=== PATIENT | female | born 1935 | race Caucasian/White ===

== ENCOUNTER 2017-07-13 11:20 | Inpatient (IN) | payer MEDICARE ==
[~2017-07-13] VITALS: Ht 160 cm; Wt 87.5 kg
[2017-07-13 11:40] LABS: BASOPHILS % (AUTO) 0.6 % (0.0-5.0); LYMPHOCYTES % (AUTO) 19.1 % (21.0-51.0); MEAN CORPUSCULAR HEMOGLOBIN 30.7 pg (27.0-33.0); MEAN CORPUSCULAR HGB CONC 33.7 g/dL (32.0-36.0); MEAN CORPUSCULAR VOLUME 90.9 fL (79-99); MONOCYTES % (AUTO) 7.3 % (3.0-13.0); PLATELET COUNT (AUTO) 212 K/uL (130-400); RED BLOOD CELL COUNT(AUTO) 4.28 MIL/uL (4.00-5.50); RED CELL DISTRIBUTION WIDTH 13.6 % (11.0-15.5); WHITE BLOOD COUNT (AUTO) 10.7 K/uL (4.8-10.8)
[2017-07-13 11:48] LABS: CREATININE 0.9 mg/dL (0.5-1.5); POTASSIUM 3.7 mmol/L (3.5-5.1)
[2017-07-13 11:51] LABS: INR 1.04 (0.85-1.15); PARTIAL THROMBOPLASTIN TIME 25.2 SEC (26.3-35.5); PROTHROMBIN TIME 10.9 SEC (9.6-11.6)
[2017-07-13 11:53] LABS: ALBUMIN 3.4 g/dL (3.5-5.0); BILIRUBIN,DIRECT 0.1 mg/dL (0.0-0.3); BILIRUBIN,TOTAL 0.5 mg/dL (0.2-1.0); TOTAL PROTEIN, SERUM 6.9 g/dL (6.0-8.3)
[2017-07-13 12:05] LABS: B-TYPE NATRIURETIC PEPTIDE 317 pg/mL (0-100)
[2017-07-13 14:30] VITALS: BP 141/46
[2017-07-13] MEDS ORDERED: ALBU8.5H8 IH (15:04)
[2017-07-13] MEDS ORDERED: RALO60TA13 PO (15:04)
[2017-07-13] MEDS ORDERED: OMEP40CA37 PO (15:04)
[2017-07-13] MEDS ORDERED: CHOL200013 PO (15:04)
[2017-07-13] MEDS ORDERED: TERB30CR22 TP (15:04)
[2017-07-13] MEDS ORDERED: LISI-613 PO (15:04)
[2017-07-13] MEDS ORDERED: LEVO50TA11 PO (15:04)
[2017-07-13] MEDS ORDERED: AMLO5TAB2 PO (15:04)
[2017-07-13] MEDS ORDERED: CALC600T12 PO (15:04)
[2017-07-13] MEDS ORDERED: FLUT15.88 NS (15:04)
[2017-07-13] MEDS ORDERED: SIMV10TA6 PO (15:04)
[2017-07-13] MEDS ORDERED: [UNRECOGNIZED DRUG - CODE] TP (15:04)
[2017-07-13] MEDS ORDERED: ATROPINE SULFATE 0.1 MG/ML 10 ML SYG IVP PRN (15:15)
[2017-07-13 16:00] VITALS: BP 132/42
[2017-07-13 19:32] VITALS: BP 150/52
[2017-07-13 20:40] LABS: CREATINE KINASE MB 0.5 ng/mL (0.5-3.6); CREATINE KINASE, TOTAL 37 U/L (21-232); MYOGLOBIN 31 ng/mL (10-92); TROPONIN I < 0.04 ng/mL (0.00-0.06)
[2017-07-13] MEDS ORDERED: ACETAMINOPHEN 650 MG SUPPOSITORY RC PRN (22:15)
[2017-07-13 23:18] VITALS: BP 124/51
[2017-07-14] VITALS (11 sets, daily range): BP systolic 109–160; BP diastolic 53–78
[2017-07-14 03:59] LABS: HEMATOCRIT 34.9 % (36-48); MEAN CORPUSCULAR HEMOGLOBIN 30.9 pg (27.0-33.0); MEAN CORPUSCULAR HGB CONC 34.3 g/dL (32.0-36.0); MEAN CORPUSCULAR VOLUME 90.1 fL (79-99); PLATELET COUNT (AUTO) 158 K/uL (130-400); RED BLOOD CELL COUNT(AUTO) 3.87 MIL/uL (4.00-5.50); RED CELL DISTRIBUTION WIDTH 13.3 % (11.0-15.5); WHITE BLOOD COUNT (AUTO) 10.2 K/uL (4.8-10.8)
[2017-07-14 04:07] LABS: INR 1.06 (0.85-1.15); PARTIAL THROMBOPLASTIN TIME 25.7 SEC (26.3-35.5); PROTHROMBIN TIME 11.1 SEC (9.6-11.6)
[2017-07-14 04:24] LABS: ALANINE AMINOTRANSFERASE 17 U/L (12-78); ALBUMIN 2.7 g/dL (3.5-5.0); ASPARTATE AMINOTRANSFERASE 14 U/L (10-37); BILIRUBIN,TOTAL 0.5 mg/dL (0.2-1.0); CARBON DIOXIDE 26 mmol/L (21-32); CHLORIDE 110 mmol/L (101-111); CREATINE KINASE MB < 0.5 ng/mL (0.5-3.6); CREATINE KINASE, TOTAL 36 U/L (21-232); CREATININE 0.8 mg/dL (0.5-1.5); GLOMERULAR FILTR. RATE CALC 74 mL/min (>60); GLUCOSE,RANDOM 118 mg/dL (70-105); MYOGLOBIN 30 ng/mL (10-92); POTASSIUM 3.7 mmol/L (3.5-5.1); SODIUM SERUM 145 mmol/L (136-145); TOTAL PROTEIN, SERUM 5.6 g/dL (6.0-8.3); TROPONIN I < 0.04 ng/mL (0.00-0.06); UREA NITROGEN, BLOOD 27 mg/dL (7-18)
[2017-07-14] MEDS: LEVOTHYROXINE 100 MCG VIAL IV SCH ×2 (06:30→06:54)
[2017-07-14] MEDS ORDERED: BUPIVACAINE/PF 0.25% 30ML VIAL IJ ONE (08:42)
[2017-07-14] MEDS ORDERED: VANCOMYCIN 1GM+NS 250ML 500 ML IV ONE (08:43)
[2017-07-14] MEDS ORDERED: LIDOCAINE HCL 1% MDV 50ML VIAL ONE (08:43)
[2017-07-14] MEDS: PANTOPRAZOLE SODIUM 40 MG TABLET.DR PO SCH (09:00)
[2017-07-14] MEDS ORDERED: MIDAZOLAM HCL 1 MG/ML 2ML VIAL ONE ×3 (09:08→10:21)
[2017-07-14] MEDS ORDERED: MEPERIDINE-PF 25 MG/ML SYG ONE ×3 (09:08→10:21)
[2017-07-14] MEDS ORDERED: ISOVUE-300 100 ML VIAL IV ONE (09:55)
[2017-07-14] MEDS ORDERED: ACETAMINOPHEN 325 MG TAB PO PRN (11:00)
[2017-07-14] MEDS ORDERED: ACETAMINOPHEN-CODEINE 300/30MG TAB PO PRN (11:00)
[2017-07-14] MEDS: ACETAMINOPHEN-CODEINE 300/30MG TAB PO PRN ×2 (14:56→20:44)
[2017-07-15 03:00] VITALS: BP 120/76
[2017-07-15] MEDS: ACETAMINOPHEN-CODEINE 300/30MG TAB PO PRN (04:39)
[2017-07-15] MEDS ORDERED: LEVOTHYROXINE 50 MCG TABLET PO SCH (06:30)
[2017-07-15 07:24] VITALS: BP 114/74
[2017-07-15] MEDS: PANTOPRAZOLE SODIUM 40 MG TABLET.DR PO SCH (07:57)
[2017-07-15 11:00] VITALS: BP 141/78
[2017-07-15 16:05] VITALS: BP 138/78
== END 2017-07-15 16:25 | disposition home or self-care (01) | DRG 244 ==
LOC: EDH 11:20 → EDHIP 13:30 → 2CH 14:31
PROVIDERS: ADMIT Family Medicine; ATTEND Family Medicine
PROC: 0JH606Z Insertion of Pacemaker, Dual Chamber into Chest Subcutaneous Tissue and Fascia, Open Approach (ICD-10-PCS; principal; 2017-07-14)
PROC: 02H63JZ Insertion of Pacemaker Lead into Right Atrium, Percutaneous Approach (ICD-10-PCS; 2017-07-14)
PROC: 02HK3JZ Insertion of Pacemaker Lead into Right Ventricle, Percutaneous Approach (ICD-10-PCS; 2017-07-14)
DX: I44.2 Atrioventricular block, complete (principal); E66.01 Morbid (severe) obesity due to excess calories; I45.10 Unspecified right bundle-branch block; E21.3 Hyperparathyroidism, unspecified; E78.5 Hyperlipidemia, unspecified; E89.2 Postprocedural hypoparathyroidism; K21.9 Gastro-esophageal reflux disease without esophagitis; M81.0 Age-related osteoporosis without current pathological fracture; E89.0 Postprocedural hypothyroidism; I97.2 Postmastectomy lymphedema syndrome; I10 Essential (primary) hypertension; Z85.3 Personal history of malignant neoplasm of breast; Z90.12 Acquired absence of left breast and nipple; Z87.442 Personal history of urinary calculi; Z83.3 Family history of diabetes mellitus; Z88.0 Allergy status to penicillin; Z68.34 Body mass index [BMI] 34.0-34.9, adult; Z72.0 Tobacco use; Z92.3 Personal history of irradiation; Z92.21 Personal history of antineoplastic chemotherapy
CPT/HCPCS: 33208; 36415; 71045; 80048; 80053; 80076; 82550; 82553; 83735; 83874; 83880; 84443; 84484; 85025; 85027; 85610; 85730; 93005; 93306; 99152; 99153; C1785; C9113; J2175; J2250; J3370; J3490; Q9967

== ENCOUNTER 2022-10-02 08:43 | Day surgery (SDC) | payer MEDICARE ==
[2022-09-30 14:32] LABS: BASOPHILS % (AUTO) 0.4 % (0.0-5.0); EOSINOPHILS % (AUTO) 3.2 % (0.0-8.0); HEMATOCRIT 38.8 % (36-48); LYMPHOCYTES % (AUTO) 11.5 % (21.0-51.0); MEAN CORPUSCULAR HGB CONC 31.7 g/dL (32.0-36.0); MEAN CORPUSCULAR VOLUME 97.7 fL (79-99); MONOCYTES % (AUTO) 8.8 % (3.0-13.0); NEUTROPHILS % (AUTO) 75.7 % (40.0-77.0); PLATELET COUNT (AUTO) 204 K/uL (130-400); RED BLOOD CELL COUNT(AUTO) 3.97 MIL/uL (4.00-5.50); RED CELL DISTRIBUTION WIDTH 13.1 % (11.0-15.5); WHITE BLOOD COUNT (AUTO) 6.8 K/uL (4.8-10.8)
[2022-09-30 14:47] LABS: CREATININE 2.4 mg/dL (0.5-1.5); INR 1.14 (0.85-1.15); POTASSIUM 4.5 mmol/L (3.5-5.1); PROTHROMBIN TIME 12.3 SEC (9.6-11.6)
[2022-09-30 14:48] LABS: PARTIAL THROMBOPLASTIN TIME 31.8 SEC (26.3-35.5)
[2022-09-30 16:09] VITALS: BP 117/49
[~2022-10-02] VITALS: Ht 157.5 cm; Wt 76.7 kg
[~2022-10-02 08:43] MED LIST: ACET325C6 PO; AMIO100T4 PO; APIX2.5T PO; DICL20GE TP; DOCU-116 PO; DONE10TA8 PO; FERR-72 PO; FOLI1TAB85 PO; FURO20TA6 PO; GABA-529 PO; GLUC1VIA14 IJ; GUAI100S13 PO; HYDR-3421 PO; IPRA3AMP24 IH; LAC HYDRIN TP; LEVO50TA4 PO; METO25TA6 PO; MONT-46 PO; ONDA4TAB10 PO; POTA-79 PO; POTA10CA45 PO; SIMV10TA97 PO; TRIAMCINOLONE AC TP; [UNRECOGNIZED DRUG - SUPPLY] VG
[2022-10-02] MEDS ORDERED: 0.9%NACL 1000ML 1,000 ML IV ONE (09:22)
[2022-10-02 09:30] VITALS: BP 133/68
[2022-10-02 12:12] LABS: APPEARANCE,URINE CLOUDY (CLEAR); BILIRUBIN,URINE NEGATIVE (NEGATIVE); COLOR,URINE LIGHT-YELLOW (YELLOW); GLUCOSE, URINE (UA) NEGATIVE (NEGATIVE); KETONES,URINE NEGATIVE (NEGATIVE); LEUKOCYTE ESTERASE ,URINE 500 Leu/uL (NEGATIVE); NITRATE,URINE NEGATIVE (NEGATIVE); PROTEIN,URINE 30 mg/dL (NEGATIVE); UROBILINOGEN,URINE 0.2 mg/dL (0.2-1.0)
[2022-10-02 12:30] LABS: BACTERIA,URINE MOD /HPF (None Seen); SQUAMOUS EPITHELIAL CELL,UR RARE /HPF (0-2); WBC,URINE TNTC /HPF (0-1)
== END 2022-10-02 11:15 | disposition home or self-care (01) ==
LOC: DAH 08:43
PROVIDERS: ATTEND Internal Medicine Cardiovascular Disease
DX: I48.0 Paroxysmal atrial fibrillation (principal); Z53.8 Procedure and treatment not carried out for other reasons; I11.0 Hypertensive heart disease with heart failure; I50.22 Chronic systolic (congestive) heart failure; E11.9 Type 2 diabetes mellitus without complications; F03.90 Unspecified dementia, unspecified severity, without behavioral disturbance, psychotic disturbance, mood disturbance, and anxiety; G47.33 Obstructive sleep apnea (adult) (pediatric); J44.9 Chronic obstructive pulmonary disease, unspecified; E78.5 Hyperlipidemia, unspecified; Z88.0 Allergy status to penicillin; Z79.01 Long term (current) use of anticoagulants; Z79.899 Other long term (current) drug therapy; Z98.890 Other specified postprocedural states
CPT/HCPCS: 71045; 80048; 85025; 85610; 85730; 36415; 93005; 87077 ×2; 87088; 87186 ×2; 82948; 81001; J7030; A4215; A4222; A4221; A4663; A4216; A4606; A4223 ×3; A4520; A4554